=== PATIENT | female | born 1940 | race Caucasian/White ===

== ENCOUNTER → 2016-10-16 | Outpatient (CLI) | payer MEDICARE, OTHER ==
--- NOTE | 2016-10-16 14:27 | RADRPT ---
PROCEDURE: Left knee radiographs. CLINICAL INDICATION: Left knee pain. TECHNIQUE: Three views. Weight bearing. Frontal, lateral, and patellar view. COMPARISON: No prior studies are available for comparison. FINDINGS: There is no fracture or dislocation. The soft tissues are normal. There is no joint effusion. There is diffuse osteopenia. There are degenerative changes with osteophytes arising from all 3 joint compartment margins. There is medial joint compartment narrowing, subarticular sclerosis, and mild deformity. There is no lytic or blastic lesion. There is no radiopaque foreign body. IMPRESSION: 1. Severe degenerative changes predominately involving the medial joint compartment. 2. No acute abnormality. RPTAT: QQ .Carlos Hedrick MD, MD Date Time Electronically viewed and signed by .Carlos Hedrick MD, on 10/16/2016 14:27 .R/
--- NOTE | 2016-10-16 18:35 | HKNOTE ---
DATE OF SERVICE: 10/16/2016 MAIN COMPLAINT: Pain in the left knee. HISTORY OF MAIN COMPLAINT: The patient is a 75-year-old female who complains of pain in her left kn ee. There was sudden onset of her pain yesterday when she came out of a vet where she left her dog for treatment. Note that she walked into the vet completely normal and left the vet with severe eben n her knee and could hardly walk. She barely managed to get back to her car. When she got home, alma rboerts brought out some crutches her had been using a few years ago. She has not been able to be ar weight on her leg since then. She admits that she has had some pain in the knee for the last 2 m onths, but cannot remember having pain for any longer time than that. Prior to yesterday, the knee did not lock, swell, or have any instability. PRESENT COMPLAINTS: The pain is mostly medial side of the knee and is aggravated by walking, weight bearing, and stair climbing. She gets mild rest pain. Note that before this started, she is able t o walk more than a mile every day. Now she cannot walk more than 3 or 4 paces without the crutches. PAST ORTHOPEDIC HISTORY: PREVIOUS ORTHOPEDIC OPERATIONS: None. PRIOR CORTISONE INTAKE: None. ALCOHOL INTAKE: One drink every couple of weeks. OTHER JOINT PROBLEMS: "Hand arthritis." PRIOR INJURIES TO HIPS OR KNEES: None. 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 PAST MEDICAL HISTORY: Intraductal cancer of the right breast. PAST SURGICAL HISTORY: 1. Right mastectomy for intraductal cancer of the right breast in 1991. No radiation or chemothera py was needed after the surgery. 2. Hysterectomy in 1978. 3. Appendectomy in 1957. PRIOR MAJOR INJURIES: Fractured right wrist in 2008. FAMILY HISTORY: Entirely noncontributory. SYSTEMS REVIEW: The patient is prone to migraines. Has a history of pneumonia and fainting. Has h emorrhoids, otherwise negative. HABITS: The patient drinks 1 alcoholic beverage every 2 weeks or so. She gave up smoking cigarette s 44 years ago. PHYSICAL EXAMINATION GENERAL: The patient comes in with her who is a psychiatrist. She walks with a pair of cru tches. VITAL SIGNS: Height 5 feet 5 inches, weight 120 pounds. Blood pressure 138/65, temperature 99.0. She is not able to take a single step without the crutches. HIPS: Both hips have full range of motion without pain. LEFT KNEE: The left knee shows normal alignment. Active and passive extension lacks 10 degrees. A ctive and passive flexion is 115 degrees. The medial and lateral collateral ligaments and cruciate ligaments are intact. Missael test is negative. There is no effusion, tenderness, scarring, or cys ts. 6+ crepitus in the knee, none in the patella. The patella tracks normally. There is no tender ness on the articular surface of the patella or in the patellar groove. The Q angle is normal. IMAGING: Plain x-rays of the left knee obtained today show complete uuhc-cy-nune severe degenerativ e osteoarthritis of the medial compartment of patellofemoral joint. There is subchondral sclerosis, intraosseous cyst formation, and osteophyte formation along the medial joint line. Moderate osteop orosis. DIAGNOSES: 1. Exceedingly severe degenerative osteoarthritis of the left knee. 2. Possible recent mechanical complication (Possible torn meniscus). 3. History of breast cancer. MANAGEMENT: Under sterile conditions, the patient was given injection of 2 mL of Kenalog and 6 mL o f 2% lidocaine into the knee. After that, she was able to walk around without her crutches. She was advised that she most definitely will need to have a left knee replacement at some time in t he near future. The surgery and some of the major possible complications discussed with her and her in a fair amount of detail. The patient was given my manual titled "Arthritis of the Knee Joint" which contains information conc erning the various alternatives of treatment. It includes various forms of conservative treatment, including the use of nonsteroidal anti-inflammatory medications and their dangers. Various surgical alternatives are discussed. The technique of total knee replacement is discussed in detail, includ ing possible complications. Included also is a section on the possible complications of blood trans fusion, a section on postoperative precautions, and an exercise program to follow at home after tota l knee replacement. The long-term care of a total knee replacement implant is also covered in grecia reyes. The patient was instructed to read this manual in its entirety since it is, in and of itself, a form of informed consent. After reading this manual, the patient will make a list of further questi ons that may not have been covered adequately. The patient was further advised that this manual, al though exhaustive in nature, is only intended to supplement and complement a one-on-one discussion w ith me. The patient was referred to my website [facility]. FINAL DIAGNOSES: 1. Exceedingly severe degenerative osteoarthritis of the left knee. 2. Possible recent mechanical complication (Possible torn meniscus). 3. History of breast cancer. The patient will call for further cortisone injections or to schedule her surgery if and when she is ready to proceed. Dictated By: SAMANTHA MARTIN/KINDRA Conf#: [id number] DID#: [id number]
== END | disposition home or self-care (01) ==
LOC: HKI 11:38
DX: M17.12 Unilateral primary osteoarthritis, left knee (principal); Z85.3 Personal history of malignant neoplasm of breast
CPT/HCPCS: 20610; 73562; G0463; J3301

== ENCOUNTER → 2017-05-01 | Outpatient (CLI) | payer MEDICARE, OTHER ==
--- NOTE | 2017-05-09 11:55 | HKNOTE ---
DATE OF SERVICE: 05/01/2017 HISTORY OF PRESENT ILLNESS: Amee was last seen by me on October 16, 2016 for the same complaint, pain in the left knee. She got marked improvement of the pain and was very pleased with the injection. The pain started up again about 2 weeks ago. They requested a repeat cortisone injection. She is going to spend a week in [place] on vacation and will be very active. PHYSICAL EXAMINATION: GENERAL: On physical examination, a petite 76-year-old female. VITAL SIGNS: Height 5 foot 5, weight 128, blood pressure 95/60. EXTREMITIES: Examination of the left knee is unchanged since the last visit. DIAGNOSIS: Severe degenerative osteoarthritis of the left knee. MANAGEMENT: Under sterile conditions, she was given an injection of 2 cc of Kenalog and 6 cc of 2 percent lidocaine into the knee. She will return again as needed for further treatment. Note that we had extensively discussed knee replacement at her last visit. Dictated By: Cisco Corrales MD /rob/megha /Document#: [id number]
== END | disposition home or self-care (01) ==
LOC: HKI 13:33
DX: M17.12 Unilateral primary osteoarthritis, left knee (principal)
CPT/HCPCS: 20610; G0463